=== PATIENT | female | born 1985 | race Caucasian/White ===

== ENCOUNTER 2019-07-02 17:01 | Emergency (ER) | payer OTHER ==
--- NOTE | 2019-07-02 17:25 | EDM.PDOC ---
ED HPI GENERAL MEDICAL PROBLEM - General Chief Complaint: Lower Extremity Injury/Pain Stated Complaint: LT FOOT AND ANKLE INJURY Time Seen by Provider: 07/02/19 17:09 Source of Information: Reports: Patient, RN Notes Reviewed History Limitations: Reports: No Limitations - History of Present Illness INITIAL COMMENTS - FREE TEXT/NARRATIVE: Patient is a 34-year-old female who presents to the ED for the evaluation of a left foot and ankle injury. Patient notes that around 215 this afternoon she was at home, was going down a staircase and looking at her phone and thought she was on the bottom step, but she was not. She fell down 2 steps, and states that the foot went backwards, and she thought she heard something pop. There is a large hematoma to the dorsum of the left lateral foot, also some swelling to the left lateral inferior malleolus. She states she is not able to bear weight, due to the pain. She took 1000 mg of Tylenol and 7.5 mg of meloxicam. She did not try icing the injury at this time. Did rate her pain at a 7 out of 10 without ambulation. She denies any numbness or tingling distal to the injury , nor does she states she is having any pain into her knee. She denies any chance of , she states she has had a hysterectomy for endometriosis. Treatments STUDENT LIFE COORDINATOR: Reports: Other (see below) Other Treatments STUDENT LIFE COORDINATOR: tylenol es and melaxicam Left Feet Pain Score (Numeric/FACES): 8 - Related Data Allergies Allergy/AdvReac Type Severity Reaction Status Date / Time meperidine [From Demerol] Allergy Hives Verified 07/02/19 17:12 ondansetron [From Zofran] Allergy Nausea and Verified 07/02/19 17:12 Vomiting Home Meds: Home Meds ARIPiprazole [Abilify] 2 mg PO DAILY 07/02/19 [History] Albuterol Sulfate [Proventil Hfa] 2 puff INH Q4H PRN 07/02/19 [History] Amitriptyline [Elavil] 75 mg PO BEDTIME 07/02/19 [History] Cyclobenzaprine [Flexeril] 10 mg PO TID PRN 07/02/19 [History] DULoxetine [Cymbalta] 120 mg PO DAILY 07/02/19 [History] Dextroamphetamine/Amphetamine [Adderall] 30 mg PO BID 07/02/19 [History] Estradiol [Estrace] 0.5 mg PO DAILY 07/02/19 [History] Fluticasone Propion/Salmeterol [Fluticasone-Salmeterol 232-14] 2 puff INH BID [History] Hydrochlorothiazide [Microzide] 50 mg PO DAILY 07/02/19 [History] Levothyroxine [Synthroid] 50 mcg PO DAILY 07/02/19 [History] Meclizine [Antivert] 25 mg PO BID 07/02/19 [History] Meloxicam 15 mg PO DAILY 07/02/19 [History] Oxybutynin 5 mg PO BID 07/02/19 [History] Pravastatin [Pravachol] 20 mg PO DAILY 07/02/19 [History] Promethazine [Phenergan] 25 mg PO Q4H PRN 07/02/19 [History] buPROPion [Wellbutrin] 150 mg PO BID 07/02/19 [History] 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 Musculoskeletal History: Reports: Other (See Below) Other Musculoskeletal History: Plantar Fasciitis Neurological History: Reports: Other (See Below) (MS like illness, states that she has a few chronic issues d/t this disease) Psychiatric History: Reports: Anxiety, Depression - Past Surgical History Female Surgical History: Reports: Hysterectomy Social & Family History - Tobacco Use Smoking Status *Q: Never Smoker - Caffeine Use Caffeine Use: Reports: Soda - Alcohol Use Alcohol Use History: No - Recreational Drug Use Recreational Drug Use: No - Living Situation & Occupation Living situation: Reports: , with Spouse Occupation: Employed Review of Systems - Review of Systems Review Of Systems: Comprehensive ROS is negative, except as noted in HPI. Musculoskeletal: Reports: Joint Pain (L ankle/lateral foot), Joint Swelling ( Left lateral ankle) Skin: Reports: Bruising (to L lateral foot) Neurological: Denies: Numbness, Tingling ED EXAM, GENERAL - Physical Exam Exam: See Below Exam Limited By: No Limitations General Appearance: Alert, WD/WN, No Apparent Distress Respiratory/Chest: No Respiratory Distress, Lungs Clear, Normal Breath Sounds, No Accessory Muscle Use, Chest Non-Tender Cardiovascular: Normal Peripheral Pulses, Regular Rate, Rhythm, No Edema, No Murmur Peripheral Pulses: 3+: Radial (L), Radial (R) Extremities: Normal Inspection (R foot), Normal Range of Motion (R foot), Normal Capillary Refill, Limited Range of Motion (of L foot/ankle d/t pain) Neurological: Alert, Oriented, Normal Cognition, No Motor/Sensory Deficits Psychiatric: Normal Affect, Normal Mood Skin Exam: Warm, Dry, Intact, No Rash, Ecchymosis (slight noted to Left lateral foot) Course - Vital Signs Last Recorded V/S: Last Vital Signs Temp 97.6 F 07/02/19 17:26 Pulse 109 H 07/02/19 17:26 Resp 20 07/02/19 17:26 BP 127/90 07/02/19 17:26 Pulse Ox 97 07/02/19 17:26 - Orders/Labs/Meds Orders: Active Orders 24 hr Category Date Time Status Ankle Min 3V Lt [CR] Stat Exams 07/02/19 17:17 Ordered Foot Comp Min 3V Lt [CR] Stat Exams 07/02/19 17:18 Ordered Acetaminophen/oxyCODONE [Percocet 325-5 MG] Med 07/02/19 19:19 Once 1 tab PO ONETIME ONE DME for Discharge [COMM] Routine Oth 07/02/19 18:18 Ordered Medication Orders Oxycodone/Acetaminophen (Percocet 325-5 Mg) 1 tab PO ONETIME ONE Stop: 07/02/19 19:20 Meds: Medications Generic Name Dose Route Start Last Admin Trade Name Freq PRN Reason Stop Dose Admin Oxycodone/Acetaminophen 1 tab 07/02/19 19:19 Percocet 325-5 Mg PO 07/02/19 19:20 ONETIME ONE Discontinued Medications Generic Name Dose Route Start Last Admin Trade Name Freq PRN Reason Stop Dose Admin Hydromorphone HCl 0.5 mg 07/02/19 18:49 07/02/19 18:58 Dilaudid IM 07/02/19 18:50 0.5 mg ONETIME ONE Administration Oxycodone/Acetaminophen 1 tab 07/02/19 18:01 07/02/19 18:06 Percocet 325-5 Mg PO 07/02/19 18:02 1 tab ONETIME ONE Administration - Re-Assessments/Exams Free Text/Narrative Re-Assessment/Exam: 07/02/19 17:26 Patient presents to the ED for the evaluation of a left foot and ankle injury. Have ordered x-rays of each to evaluate for injury. As there is some swelling in the the inferior lateral malleolus, and into the lateral dorsum of her foot. 07/02/19 18:50 Patient was initially given 5 mg Percocet for pain relief, she states however this only really made her head fuzzy, did not help the pain in her foot. At this time I did order 0.5 mg of IM Dilaudid for pain management. Departure - Departure Time of Disposition: 19:20 Disposition: Home, Self-Care 01 Condition: Fair Clinical Impression: Sprain and strain of left ankle Sprain of left foot Qualifiers: Encounter type: initial encounter Qualified Code(s): S93.602A - Unspecified sprain of left foot, initial encounter - Discharge Information *PRESCRIPTION DRUG MONITORING PROGRAM REVIEWED*: No *COPY OF PRESCRIPTION DRUG MONITORING REPORT IN PATIENT TRISH: No Instructions: Ankle Sprain, [id number] Referrals: Trina Cook PA-C [Primary Care Provider] - Forms: ED Department Discharge Additional Instructions: You have been evaluated in the ED for your left ankle/foot injury. Your x-ray demonstrated no obvious acute fracture or abnormality of the left foot or ankle. You most likely have a really bad sprain of the ankle and lateral foot. However official radiology read is pending, films were reviewed by myself and the ER doctor on shift, and it is not likely that you have any sort of acute fracture or bony abnormality. You will be called and made notified if something would change when we get the official read back, this may be tomorrow, Wednesday, July 03. However you will be treated with a walking boot for immobilization, please keep this in place, and use the crutches to stay nonweightbearing, unless told otherwise per orthopedics. Please use ice as tolerated to the affected area. Please try to elevate the affected area as much as possible to help reduce swelling. You may take Tylenol 500 mg or ibuprofen 600mg q6 hrs for pain relief. Please do so until you have a tolerable level of pain with activity. Do not exceed 4000mg Tylenol, Do not exceed 3200mg ibuprofen in a 24 hour time period. You were given a prescription for a strong pain medication, oxycodone/ acetaminophen 5/325, please take 1 tab every 6 hours as needed for pain not relieved by Tylenol or ibuprofen alone. Please note this does contain Tylenol in it, so do not take more than 4000 mg in a 24-hour time span. These medications can be addictive, so please take as few as possible to achieve adequate pain control. These meds can also be quite constipating, recommend that you increase your oral fluid intake and take a stool softener like MiraLAX while taking these medications. Please call Ortho for follow-up and further evaluation Dr. Centeno is our orthopedic surgeon, his office number is [phone]. Please call and set up an appointment as soon as possible for further management/evaluation. Dr. Franco is an physician credentialing specialist at the [facility], number their is . Please return to ED if your symptoms should change or worsen. Sepsis Event Note - Focused Exam Vital Signs: Vital Signs Temp Pulse Resp BP Pulse Ox 07/02/19 17:26 97.6 F 109 H 20 127/90 97 Date Exam was Performed: 07/02/19 Time Exam was Performed: 19:20 - My Orders Last 24 Hours: My Active Orders 07/02/19 17:17 Ankle Min 3V Lt [CR] Stat 07/02/19 17:18 Foot Comp Min 3V Lt [CR] Stat 07/02/19 18:18 DME for Discharge [COMM] Routine 07/02/19 19:19 Acetaminophen/oxyCODONE [Percocet 325-5 MG] 1 tab PO ONETIME ONE - Assessment/Plan Last 24 Hours: My Active Orders 07/02/19 17:17 Ankle Min 3V Lt [CR] Stat 07/02/19 17:18 Foot Comp Min 3V Lt [CR] Stat 07/02/19 18:18 DME for Discharge [COMM] Routine 07/02/19 19:19 Acetaminophen/oxyCODONE [Percocet 325-5 MG] 1 tab PO ONETIME ONE
[2019-07-02] MEDS ORDERED: Acetaminophen/oxyCODONE 325-5 MG Tab PO ONE ×2 (18:01→19:19)
[2019-07-02] MEDS ORDERED: HYDROmorphone 0.5 MG/0.5 ML Syringe IM ONE (18:49)
--- NOTE | 2019-07-03 07:16 | CR ---
Left ankle: Three views of left ankle were obtained. Comparison: No prior ankle study. Ankle mortise is symmetric. Lucent line is identified within the distal tip of the calcaneus compatible with small fracture. Medial and lateral malleoli are intact. No additional fracture or other bony abnormality is seen. Impression: 1. Small fracture involving the very distal tip of the calcaneus. 2. No additional abnormality is seen on left ankle exam. Diagnostic code #3 This report was dictated in [place] Standard Time
--- NOTE | 2019-07-03 07:16 | CR ---
Left foot: Four views of the left foot were obtained. Comparison: No prior foot exam. Ankle exam performed on the same day. Fracture again seen off the distal tip of the calcaneus. Small cortical avulsion fracture is noted off the dorsal and lateral talus. Soft tissue swelling is noted. No additional fracture or other bony abnormality is seen. Impression: 1. Fracture within the distal tip of the calcaneus. 2. Small displaced cortical avulsion fracture off the dorsal and lateral talus. 3. Soft tissue swelling in this area. Diagnostic code #3 This report was dictated in [place] Standard Time
== END 2019-07-02 19:41 | disposition home or self-care (01) ==
LOC: JD.ED 17:01
DX: S92.002A Unspecified fracture of left calcaneus, initial encounter for closed fracture (principal); S92.142A Displaced dome fracture of left talus, initial encounter for closed fracture; S92.152A Displaced avulsion fracture (chip fracture) of left talus, initial encounter for closed fracture; F41.9 Anxiety disorder, unspecified; F32.9 Major depressive disorder, single episode, unspecified; Z88.8 Allergy status to other drugs, medicaments and biological substances; Z79.899 Other long term (current) drug therapy; W10.9XXA Fall (on) (from) unspecified stairs and steps, initial encounter; Y92.009 Unspecified place in unspecified non-institutional (private) residence as the place of occurrence of the external cause
CPT/HCPCS: 73610; 73630; 96372; 99283; A9270; J1170

== ENCOUNTER 2020-08-17 14:12 | Emergency (ER) | payer OTHER ==
[2020-08-17] MEDS ORDERED: Sodium Chloride 0.9% 1,000 ML IV STA (14:36)
[2020-08-17] MEDS ORDERED: Metoclopramide 10 MG/2 ML SDV IVPUSH ONE (14:36)
[2020-08-17] MEDS ORDERED: diphenhydrAMINE 50 MG/ML SDV IVPUSH ONE (14:36)
[2020-08-17] MEDS ORDERED: Ketorolac 30 MG/ML SDV IVPUSH ONE (14:36)
--- NOTE | 2020-08-17 14:40 | EDM.PDOC ---
ED HPI GENERAL MEDICAL PROBLEM - General Chief Complaint: Headache Stated Complaint: HEADACHE Time Seen by Provider: 08/17/20 14:15 Source of Information: Reports: Patient, RN Notes Reviewed History Limitations: Reports: No Limitations - History of Present Illness INITIAL COMMENTS - FREE TEXT/NARRATIVE: Patient is a 35-year-old female presenting to the emergency department with complaints of right ear pain, mild sore throat, and headache. States her symptoms began this last Wednesday with the sore throat and right. she began develop headache in association with the symptoms. She was seen at the [facility] for evaluation at that time. She was diagnosed with viral illness, however she was given doxycycline and advised to start it in 5 to 7 days if she is not having improvement in symptoms. Patient states that 2 weeks ago she was treated for a bacterial sinusitis with Augmentin which is why the use doxycycline this time. She took 1 doxycycline this morning but has had not had relief. She also took half of a Lititz as well as some ibuprofen. Denies any vision changes. She does feel nauseous but has not vomited. Denies any fever or chills. Headache Pain Score (Numeric/FACES): 8 - Related Data Allergies Allergy/AdvReac Type Severity Reaction Status Date / Time meperidine [From Demerol] Allergy Severe Hives Verified 08/17/20 21:05 ondansetron [From Zofran] Allergy Severe Nausea and Verified 08/17/20 21:05 Vomiting Home Meds: Home Meds ARIPiprazole [Abilify] 2 mg PO DAILY 07/02/19 [History] Acetaminophen/oxyCODONE [Percocet 325-5 MG] 1 each PO Q6H PRN #20 tab 07/02/19 [Rx] Albuterol Sulfate [Proventil Hfa] 2 puff INH Q4H PRN 07/02/19 [History] Amitriptyline [Elavil] 75 mg PO BEDTIME 07/02/19 [History] Cyclobenzaprine [Flexeril] 10 mg PO TID PRN 07/02/19 [History] DULoxetine [Cymbalta] 120 mg PO DAILY 07/02/19 [History] Dextroamphetamine/Amphetamine [Adderall] 30 mg PO BID 07/02/19 [History] Fluticasone Propion/Salmeterol [Fluticasone-Salmeterol 232-14] 2 puff INH BID 07/02/19 [History] Levothyroxine [Synthroid] 50 mcg PO DAILY 07/02/19 [History] Meclizine [Antivert] 25 mg PO DAILY 07/02/19 [History] Meloxicam 15 mg PO DAILY 07/02/19 [History] Oxybutynin 5 mg PO BID 07/02/19 [History] Pravastatin [Pravachol] 20 mg PO DAILY 07/02/19 [History] Promethazine [Phenergan] 25 mg PO Q4H PRN 07/02/19 [History] buPROPion [Wellbutrin] 150 mg PO BID 07/02/19 [History] estradioL [Estrace] 1 mg PO DAILY 07/02/19 [History] hydroCHLOROthiazide [Microzide] 50 mg PO DAILY 07/02/19 [History] Budesonide [Pulmicort] 1 ampule INH Q4H 08/17/20 [History] Gabapentin [Neurontin] 100 mg PO BEDTIME 08/17/20 [History] Spironolactone 50 mg PO BID 08/17/20 [History] Tiotropium [Spiriva] 2 puff INH DAILY 08/17/20 [History] methylPREDNISolone [Medrol] 4 mg PO ASDIRECTED #1 tab.ds.pk 08/17/20 [Rx] Past Medical History Respiratory History: Reports: Asthma Gastrointestinal History: Reports: GERD 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 Musculoskeletal History: Reports: Other (See Below) Other Musculoskeletal History: Plantar Fasciitis Neurological History: Reports: Other (See Below) Psychiatric History: Reports: Anxiety, Depression - Past Surgical History Female Surgical History: Reports: Hysterectomy Musculoskeletal Surgical History: Reports: Other (See Below) Other Musculoskeletal Surgeries/Procedures:: planter fasitis Social & Family History - Tobacco Use Tobacco Use Status *Q: Never Tobacco User - Caffeine Use Caffeine Use: Reports: Soda - Recreational Drug Use Recreational Drug Use: No - Living Situation & Occupation Living situation: Reports: , with Spouse Occupation: Employed ED ROS GENERAL - Review of Systems Review Of Systems: See Below Constitutional: Reports: No Symptoms. Denies: Fever, Chills HEENT: Reports: Ear Pain, Throat Pain. Denies: Vertigo, Vision Change Respiratory: Reports: No Symptoms Cardiovascular: Reports: No Symptoms Endocrine: Reports: No Symptoms GI/Abdominal: Reports: No Symptoms : Reports: No Symptoms Musculoskeletal: Reports: No Symptoms Skin: Reports: No Symptoms Neurological: Reports: Headache. Denies: Dizziness Psychiatric: Reports: No Symptoms Hematologic/Lymphatic: Reports: No Symptoms Immunologic: Reports: No Symptoms - Physical Exam Exam: See Below Exam Limited By: No Limitations General Appearance: Alert, WD/WN, No Apparent Distress Eye Exam: Bilateral Eye: Normal Inspection, PERRL Ears: Normal External Exam, Normal Canal, Hearing Grossly Normal, Normal TMs Throat/Mouth: Normal Inspection, Normal Lips, Normal Teeth, Normal Gums, Normal Oropharynx, Normal Voice, No Airway Compromise Head Exam: Atraumatic, Normocephalic Neck: Normal Inspection, Supple, Non-Tender, Full Range of Motion Respiratory/Chest: No Respiratory Distress, Lungs Clear, Normal Breath Sounds, No Accessory Muscle Use, Chest Non-Tender Cardiovascular: Normal Peripheral Pulses, Regular Rate, Rhythm, No Edema, No Gallop, No JVD, No Murmur, No Rub GI/Abdominal: Normal Bowel Sounds, Soft, Non-Tender, No Organomegaly, No Distention, No Abnormal Bruit, No Mass Neuro Exam (Abbreviated): Alert, Oriented, CN II-XII Intact, Normal Cognition, Normal Gait, Normal Reflexes, No Motor/Sensory Deficits Psychiatric: Normal Affect, Normal Mood Skin Exam: Warm, Dry, Intact, Normal Color, No Rash Course - Vital Signs Last Recorded V/S: Last Vital Signs Temp 98.8 F 08/17/20 14:28 Pulse 95 08/17/20 16:10 Resp 16 08/17/20 16:10 BP 141/97 H 08/17/20 16:10 Pulse Ox 97 08/17/20 16:10 - Orders/Labs/Meds Labs: Laboratory Tests 08/17/20 08/17/20 Range/Units 15:20 15:20 WBC 9.45 (3.98-10.04) K/mm3 RBC 4.16 (3.98-5.22) M/mm3 Hgb 12.8 (11.2-15.7) gm/dl Hct 39.0 (34.1-44.9) % MCV 93.8 (79.4-94.8) fl MCH 30.8 (25.6-32.2) pg MCHC 32.8 (32.2-35.5) g/dl RDW Std Deviation 45.5 (36.4-46.3) fL Plt Count 258 (182-369) K/mm3 MPV 9.8 (9.4-12.3) fl Neut % (Auto) 61.1 (34.0-71.1) % Lymph % (Auto) 30.2 (19.3-51.7) % [place] % (Auto) 6.1 (4.7-12.5) % Eos % (Auto) 2.1 (0.7-5.8) Baso % (Auto) 0.3 (0.1-1.2) % Neut # (Auto) 5.77 (1.56-6.13) K/mm3 Lymph # (Auto) 2.85 (1.18-3.74) K/mm3 [place] # (Auto) 0.58 H (0.24-0.36) K/mm3 Eos # (Auto) 0.20 (0.04-0.36) K/mm3 Baso # (Auto) 0.03 (0.01-0.08) K/mm3 Sodium 142 (136-145) mEq/L Potassium 4.4 (3.5-5.1) mEq/L Chloride 103 (98-107) mEq/L Carbon Dioxide 29 (21-32) mEq/L Anion Gap 14.4 (5-15) BUN 25 H (7-18) mg/dL Creatinine 1.2 H (0.55-1.02) mg/dL Est Cr Clr Drug Dosing TNP Estimated GFR (MDRD) 51 (>60) mL/min BUN/Creatinine Ratio 20.8 H (14-18) Glucose 82 (74-106) mg/dL Calcium 8.8 (8.5-10.1) mg/dL Total Bilirubin 0.3 (0.2-1.0) mg/dL AST 16 (15-37) U/L ALT 22 (14-59) U/L Alkaline Phosphatase 85 (46-116) U/L C-Reactive Protein 1.0 (<1.0) mg/dL Total Protein 6.7 (6.4-8.2) g/dl Albumin 3.4 (3.4-5.0) g/dl Globulin 3.3 gm/dL Albumin/Globulin Ratio 1.0 (1-2) Meds: Medications Discontinued Medications Generic Name Dose Route Start Last Admin Trade Name Sindhu PRN Reason Stop Dose Admin Diphenhydramine HCl 50 mg 08/17/20 14:36 08/17/20 14:53 Benadryl IVPUSH 08/17/20 14:37 50 mg ONETIME ONE Administration Hydromorphone HCl 0.5 mg 08/17/20 15:59 08/17/20 16:05 Dilaudid IVPUSH 08/17/20 16:00 0.5 mg ONETIME ONE Administration Sodium Chloride 1,000 mls @ 999 mls/hr 08/17/20 14:36 08/17/20 14:54 Normal Saline IV 08/17/20 15:36 999 mls/hr NOW STA Administration Ketorolac Tromethamine 30 mg 08/17/20 14:36 08/17/20 14:53 Toradol IVPUSH 08/17/20 14:37 30 mg ONETIME ONE Administration Metoclopramide HCl 7.5 mg 08/17/20 14:36 08/17/20 14:53 Reglan IVPUSH 08/17/20 14:37 7.5 mg ONETIME ONE Administration - Re-Assessments/Exams Free Text/Narrative Re-Assessment/Exam: Patient is a 35-year-old female presenting to the emergency department with complaints of a 5-day history of right ear pain, throat pain, and headache. She started taking doxycycline that was prescribed by [facility] today. She has used half of a Lititz and ibuprofen with little relief. Exam findings are grossly unremarkable. TM is normal. Mucous membranes are dry but oropharynx is not erythematous. Ordered 1 L of normal saline bolus, Toradol 30 mg IV, Reglan 7.5 mg IV, and Benadryl 50 mg IV. Blood work to include CBC, CMP, CRP. 08/17/20 16:11 Hematology is grossly unremarkable. Exam findings show no sign of otitis media. Patient is likely suffering from a viral illness. She may continue to take her doxycycline as currently prescribed. I will also send a Medrol Dosepak to help with inflammation in the ear. Recommend Tylenol and ibuprofen. Discharge instructions as documented. Departure - Departure Time of Disposition: 16:12 Disposition: Home, Self-Care 01 Condition: Good Clinical Impression: Ear pain, right Headache Qualifiers: Headache type: unspecified Headache chronicity pattern: acute headache Intractability: not intractable Qualified Code(s): R51.9 - Headache, unspecified - Discharge Information *PRESCRIPTION DRUG MONITORING PROGRAM REVIEWED*: No *COPY OF PRESCRIPTION DRUG MONITORING REPORT IN PATIENT TRISH: No Prescriptions: methylPREDNISolone [Medrol] 4 mg PO ASDIRECTED #1 tab.ds.pk Instructions: General Headache Without Cause, Earache, Adult Referrals: Trina Cook PA-C [Primary Care Provider] - Forms: ED Department Discharge Additional Instructions: You were seen in the emergency department today for evaluation with regards to right ear pain, sore throat, and headache. Blood work was completed and was found to be normal. Exam findings were also normal. You are likely suffering from a viral illness. You may continue to take your doxycycline as previously prescribed. A prescription for all a Medrol Dosepak to reduce inflammation in your ear has been sent to [place] pharmacy. Take this medication as prescribed. Continue to use Tylenol or ibuprofen as needed for discomfort. Recommend follow-up with Trina Cook early next week if symptoms not improved. Return to ER as needed. Sepsis Event Note (ED) - Evaluation Sepsis Screening Result: No Definite Risk
[2020-08-17] MEDS ORDERED: HYDROmorphone 0.5 MG/0.5 ML Syringe IVPUSH ONE (15:59)
== END 2020-08-17 16:34 | disposition home or self-care (01) ==
LOC: JD.ED 14:12
DX: H92.01 Otalgia, right ear (principal); R51.9 Headache, unspecified; R11.0 Nausea; J45.909 Unspecified asthma, uncomplicated; Z88.8 Allergy status to other drugs, medicaments and biological substances; Z79.899 Other long term (current) drug therapy
CPT/HCPCS: 36415; 80053; 85025; 86140; 96374; 96375; 99284; J1170; J1200; J1885; J2765; J7030

== ENCOUNTER 2020-08-17 20:50 | Emergency (ER) | payer OTHER ==
[2020-08-17] MEDS ORDERED: Ondansetron 4 MG/2 ML SDV IVPUSH ONE (21:32)
[2020-08-17] MEDS ORDERED: Benztropine 1 MG Tab PO STA (21:32)
[2020-08-17] MEDS ORDERED: Haloperidol Lactate 5 MG/ML SDV IM ONE (21:32)
[2020-08-17] MEDS ORDERED: Sodium Chloride 0.9% 1,000 ML IV ONE (21:32)
[2020-08-17] MEDS ORDERED: Ketorolac 30 MG/ML SDV IVPUSH STA (21:35)
--- NOTE | 2020-08-17 21:41 | EDM.PDOC ---
ED HPI GENERAL MEDICAL PROBLEM - General Chief Complaint: Headache Stated Complaint: FACE PAIN AND SICK TO STOMACH Time Seen by Provider: 08/17/20 21:05 Source of Information: Reports: Patient, Family () History Limitations: Reports: No Limitations - History of Present Illness INITIAL COMMENTS - FREE TEXT/NARRATIVE: Mrs. Toro is a pleasant 35-year-old woman who states that she developed a right temporal headache, along with pain felt in her right ear and right side of her throat on 08/13/2020. She states that she was seen at the ED walk-in clinic on , 08/15/2020, where, she states, a rapid strep test and COVID test returned negative. She states that she was diagnosed with a viral illness, but nevertheless prescribed doxycycline, which she started taking this morning. The patient was then seen in this ED this morning for these complaints. She was found to be hemodynamically stable, afebrile, saturating 97% on room air. Work- up included a CBC, CMP, and CRP, all of which were completely normal. She was treated with IV diphenhydramine, IV Dilaudid, IV Toradol, IV Reglan, and IV fluid before being discharged home with a prescription for a Medrol Dosepak. The patient now returns to the ED stating that she had some improvement in her symptoms when seen in the ED, which lasted for about 2 hours, but then returned, worse than before. In addition, she has also developed nausea, although has not vomited, and upper and lower right dentalgia. She states that she occasionally gets headaches, although not this severe. She describes her right protestant pain and right ear pain is an ache, occasionally stabbing. She denies having any associated visual changes, such as blurry vision, wavy lines, or flashing lights. She states, however, that she has a sensitivity to light in her right eye only, and she may also have some phonophobia. No neurologic symptoms, such as tingling, numbness, or weakness. The patient states that she takes 900 mg of gabapentin QPM, other 100 mg QHS, as a treatment for her fibromyalgia. Here in the ED, the patient's initial BP is found to be somewhat elevated at 163/92, with a tachycardia of 122 bpm and slight tachypnea of 22 rpm. She is afebrile, saturating 98% on room air. The patient states that she was diagnosed with bacterial sinusitis about 2 weeks ago, treated with Augmentin. Her history, however, is consistent with sinusitis, not a sinus infection. Other than the symptoms, the patient denies having a recent fever, chills, cough, dyspnea, chest pain, palpitations, vomiting, constipation, diarrhea, abdominal pain, urinary symptoms, recent weight gain or weight loss, recent bloody bowel movements or black bowel movements, recent joint aches, or rashes. The patient's PCP is ABENA Leon. Her Manager Channel is Dr. Marito Queen. Her Head Wrestling Coach is Dr. Turner, in [place], [place]. She states that she already received an influenza vaccine this season. Right Face/Facial Pain Score (Numeric/FACES): 10 - Related Data Allergies Allergy/AdvReac Type Severity Reaction Status Date / Time meperidine [From Demerol] Allergy Severe Hives Verified 08/17/20 21:05 ondansetron [From Zofran] Allergy Severe Nausea and Verified 08/17/20 21:05 Vomiting Home Meds: Home Meds ARIPiprazole [Abilify] 2 mg PO DAILY 07/02/19 [History] Acetaminophen/oxyCODONE [Percocet 325-5 MG] 1 each PO Q6H PRN #20 tab 07/02/19 [Rx] Albuterol Sulfate [Proventil Hfa] 2 puff INH Q4H PRN 07/02/19 [History] Amitriptyline [Elavil] 75 mg PO BEDTIME 07/02/19 [History] Cyclobenzaprine [Flexeril] 10 mg PO TID PRN 07/02/19 [History] DULoxetine [Cymbalta] 120 mg PO DAILY 07/02/19 [History] Dextroamphetamine/Amphetamine [Adderall] 30 mg PO BID 07/02/19 [History] Fluticasone Propion/Salmeterol [Fluticasone-Salmeterol 232-14] 2 puff INH BID 07/02/19 [History] Levothyroxine [Synthroid] 50 mcg PO DAILY 07/02/19 [History] Meclizine [Antivert] 25 mg PO DAILY 12/29/19 [History] Meloxicam 15 mg PO DAILY 07/02/19 [History] Oxybutynin 5 mg PO BID 07/02/19 [History] Pravastatin [Pravachol] 20 mg PO DAILY 07/02/19 [History] Promethazine [Phenergan] 25 mg PO Q4H PRN 07/02/19 [History] buPROPion [Wellbutrin] 150 mg PO BID 07/02/19 [History] estradioL [Estrace] 1 mg PO DAILY 07/02/19 [History] hydroCHLOROthiazide [Microzide] 50 mg PO DAILY 07/02/19 [History] Budesonide [Pulmicort] 1 ampule INH Q4H 08/17/20 [History] Gabapentin [Neurontin] 100 mg PO BEDTIME 08/17/20 [History] Spironolactone 50 mg PO BID 08/17/20 [History] Tiotropium [Spiriva] 2 puff INH DAILY 08/17/20 [History] methylPREDNISolone [Medrol] 4 mg PO ASDIRECTED #1 tab.ds.pk 08/17/20 [Rx] Past Medical History Cardiovascular History: Reports: High Cholesterol Respiratory History: Reports: Asthma (PFT-proven) Gastrointestinal History: Reports: GERD, PUD 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: Endometriosis (laparoscopy-proven) Psychiatric History: Reports: Anxiety, Depression, Other (See Below) ( Fibromyalgia, Chronic Fatigue Syndrome) Endocrine/Metabolic History: Reports: Hypothyroidism, Obesity/BMI 30+ - Infectious Disease History Infectious Disease History: Reports: Chicken Pox - Past Surgical History HEENT Surgical History: Reports: Adenoidectomy, Oral Surgery (dental extractions), Tonsillectomy GI Surgical History: Reports: Appendectomy, Cholecystectomy (1996), Colonoscopy (x 3), EGD (x 3) Female Surgical History: Reports: Hysterectomy (complete), Other (See Below) (Exploratory laparoscopy for endometriosis x 5) Social & Family History - Tobacco Use Tobacco Use Status *Q: Never Tobacco User Second Hand Smoke Exposure: No - Caffeine Use Caffeine Use: Reports: Soda - Alcohol Use Alcohol Use History: No - Recreational Drug Use Recreational Drug Use: No - Living Situation & Occupation Living situation: Reports: , with Spouse Occupation: Unemployed ED ROS GENERAL - Review of Systems Review Of Systems: Comprehensive ROS is negative, except as noted in HPI. - Physical Exam Exam: See Below Exam Limited By: No Limitations General Appearance: Alert, WD/WN, No Apparent Distress Eye Exam: Bilateral Eye: EOMI, Normal Inspection Ears: Normal External Exam, Normal Canal, Hearing Grossly Normal, Normal TMs, Other (The patient reports pain with mild tugging on her external ear) Nose: Normal Inspection, Normal Mucosa, No Blood Throat/Mouth: Normal Inspection, Normal Lips, Normal Teeth, Normal Gums, Normal Oropharynx (no erythema or swelling), Normal Voice, No Airway Compromise Head Exam: Atraumatic, Normocephalic Neck: Normal Inspection, Supple, Full Range of Motion, Other (Tenderness to palpation of the right submandibular lymph node region, although no lymphadenopathy palpated). No: Lymphadenopathy (L), Lymphadenopathy (R) Respiratory/Chest: No Respiratory Distress, Lungs Clear, Normal Breath Sounds, No Accessory Muscle Use Cardiovascular: Normal Peripheral Pulses, Regular Rate, Rhythm, No Gallop, No JVD, No Murmur, No Rub GI/Abdominal: Normal Bowel Sounds, Soft, Non-Tender, No Organomegaly, No Distention, No Abnormal Bruit, No Mass Neuro Exam (Abbreviated): Alert, Oriented, Normal Cognition, No Motor/Sensory Deficits Back Exam: Normal Inspection, Full Range of Motion, NT Extremities: Normal Inspection, Normal Range of Motion, Normal Capillary Refill Psychiatric: Depressed Mood Skin Exam: Warm, Dry, Intact, Normal Color, No Rash Course - Vital Signs Last Recorded V/S: Last Vital Signs Temp 36.1 C 08/17/20 21:01 Pulse 95 08/18/20 01:38 Resp 16 08/18/20 01:38 BP 145/88 H 08/18/20 01:38 Pulse Ox 100 08/18/20 01:38 - Orders/Labs/Meds Orders: Active Orders 24 hr Category Date Time Status Head wo Cont [CT] Stat Exams 08/18/20 00:15 Taken Meds: Medications Discontinued Medications Generic Name Dose Route Start Last Admin Trade Name Sindhu PRN Reason Stop Dose Admin Benztropine Mesylate 1 mg 08/17/20 21:32 08/17/20 21:58 Cogentin PO 08/17/20 21:33 1 mg ONETIME STA Administration Haloperidol Lactate 5 mg 08/17/20 21:32 08/17/20 21:50 Haldol IM 08/17/20 21:33 5 mg ONETIME ONE Administration Sodium Chloride 1,000 mls @ 999 mls/hr 08/17/20 21:32 08/17/20 21:49 Normal Saline IV 08/17/20 22:32 999 mls/hr ONETIME ONE Administration Ketorolac Tromethamine 30 mg 08/17/20 21:35 08/17/20 21:48 Toradol IVPUSH 08/17/20 21:36 30 mg ONETIME STA Administration Metoclopramide HCl 10 mg 08/17/20 22:14 08/17/20 22:22 Reglan IVPUSH 08/17/20 22:15 10 mg ONETIME ONE Administration Ondansetron HCl 4 mg 08/17/20 21:32 08/17/20 21:58 Zofran IVPUSH 08/17/20 21:33 Not Given ONETIME ONE - Re-Assessments/Exams Free Text/Narrative Re-Assessment/Exam: 08/17/20 21:36 As above, the patient developed right ear pain, right-sided sore throat, and headache on Wednesday, was seen in the walk-in clinic on , where a rapid strep test and COVID test were negative. She was diagnosed with a viral illness, but prescribed doxycycline anyway, which she started today. She was then seen in our ED this afternoon, where a CBC, CMP, and CRP were unremarkable. She was again diagnosed with a viral illness. She was treated with IV diphenhydramine, IV Dilaudid, IV Toradol, IV Reglan, and IV fluid before being discharged home with a prescription for a Medrol Dosepak. She now returns with continuation of her symptoms along with nausea without vomiting that began today. She reports right eye photophobia and possible phonophobia. Her symptoms are concerning for migraine etiology, although she is on gabapentin, which 1 would expect to ameliorate that. Nevertheless, I have ordered treatment with IM Haldol, oral Cogentin, IV Zofran, IV Toradol, and IV fluid. Since her blood work was unremarkable just this afternoon, I do not see need to repeat it tonight. 08/17/20 22:15 Notified by Fiorella ACHARYA that the patient reported that she is "allergic" to Zofran insofar as it causes her to vomit more. Of course, that is not an actual allergic reaction, however, I have ordered IV Reglan instead. 08/18/20 00:04 The patient states that she had some brief improvement in her headache following the Haldol and Toradol, however, it has since returned, worse than before. Based on this, the patient's headache is not due to a migraine. I recommended that she follow-up with neurology to see if they can figure out the cause of her symptoms. They may want to perform an MRI of her head, which I explained I am unable to do from the ED. The patient is not satisfied. She would like me to treat her with some form of pain medication to address her pain now, however, I explained that I cannot prescribe an opioid for headache, since history has shown that that approach leads to an upward spiral of pain which is nearly impossible to get out of, and because of that, the guidelines are very clear that opioids should not be used to treat headache pain unless the pain is due to an intracranial bleed. The patient requested that I call the Hospitalist to see if they have any suggestions. 08/18/20 00:[address] Garcia at 00:07. He agreed that opioids should not be started, and did not have any suggestions on how the patient's pain should be treated. He did not feel the patient should be admitted. 08/18/20 00:15 The above was discussed with the patient. Although her neurologic examination is normal, I suggested that we check a CT of the head to rule out the (highly unlikely) possibility of an intracranial bleed or some other anatomic problem that might explain her symptoms. The patient agreed. 08/18/20 01:03 CT of the head without contrast is read by Connor as "No acute intracranial abnormality." 08/18/20 01:11 CT results discussed with the patient and her . I will discharge the patient home with the recommendation that she take the Medrol Dosepak as prescribed earlier today, and I will provide her with a number for her to make an appointment to see the Neurology midlevel Samantha Pagan DNP, in [place], for further evaluation. Departure - Departure Time of Disposition: :14 Disposition: Home, Self-Care 01 Condition: Good Clinical Impression: Right facial pain - Discharge Information *PRESCRIPTION DRUG MONITORING PROGRAM REVIEWED*: Not Applicable *COPY OF PRESCRIPTION DRUG MONITORING REPORT IN PATIENT TRISH: Not Applicable Referrals: Trina Cook PA-C [Primary Care Provider] - Marito Queen MD [Ordering Only Provider] - Forms: ED Department Discharge Additional Instructions: You were seen in the emergency room for continued right protestant pain with right ear and right throat pain, and nausea. Work-up in the ER included a CT of your head, which returned normal. You had temporary relief following IM Haldol and IV Toradol, however, your pain returned. Based on the above, your pain is most likely NOT due pain. The cause of your symptoms is not known. We recommend that you take the Medrol Dosepak that was prescribed to you earlier yesterday. If your symptoms persist, we recommend that you follow-up with the neurology midlevel Samantha Pagan DNP, in [place]. Call [phone] to make an appointment. If any other problems, please do not hesitate to return to the ER. Sepsis Event Note (ED) - Evaluation Sepsis Screening Result: No Definite Risk - Focused Exam Vital Signs: Vital Signs Temp Pulse Resp BP Pulse Ox 08/18/20 01:38 95 16 145/88 H 100 08/17/20 21:01 36.1 C 122 H 22 H 163/92 H 98 - My Orders Last 24 Hours: My Active Orders 08/18/20 00:15 Head wo Cont [CT] Stat - Assessment/Plan Last 24 Hours: My Active Orders 08/18/20 00:15 Head wo Cont [CT] Stat
[2020-08-17] MEDS ORDERED: Metoclopramide 10 MG/2 ML SDV IVPUSH ONE (22:14)
--- NOTE | 2020-08-18 18:05 | CT ---
Head CT Technique: Multiple axial sections through the brain were obtained. Intravenous contrast was not utilized. Reconstructed coronal and sagittal images were obtained. Comparison: No prior intracranial imaging is available. Findings: Ventricles along with basal cisterns and sulci over the convexities are within normal limits for the patient's age. No abnormal parenchymal densities are seen. No evidence of intracranial hemorrhage. No midline shift or mass-effect is seen. Bone window settings were reviewed. No acute calvarial abnormality is seen. Visualized mastoid sinuses and paranasal sinuses show nothing acute. Impression: 1. Nothing acute is appreciated on noncontrast head CT study. Diagnostic code #1 I agree with preliminary report from 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
== END 2020-08-18 01:38 | disposition home or self-care (01) ==
LOC: JD.ED 20:50
DX: R51.9 Headache, unspecified (principal); E78.00 Pure hypercholesterolemia, unspecified; J45.909 Unspecified asthma, uncomplicated; K21.9 Gastro-esophageal reflux disease without esophagitis; E03.9 Hypothyroidism, unspecified; E66.9 Obesity, unspecified; Z68.42 Body mass index [BMI] 45.0-49.9, adult; Z88.5 Allergy status to narcotic agent; Z79.899 Other long term (current) drug therapy
CPT/HCPCS: 70450; 96372; 96374; 96375; 99283; A9270; J1630; J1885; J2765; J7030; 99284

== ENCOUNTER 2020-08-19 18:39 | Emergency (ER) | payer OTHER ==
[2020-08-19] MEDS ORDERED: Ketorolac 60 MG/2 ML SDV IM ONE (20:04)
[2020-08-19] MEDS ORDERED: Ketorolac 30 MG/ML SDV IVPUSH ONE (20:12)
[2020-08-19] MEDS ORDERED: Ketorolac 30 MG/ML SDV ONE (20:13)
--- NOTE | 2020-08-19 20:17 | EDM.PDOC ---
ED HPI GENERAL MEDICAL PROBLEM - General Chief Complaint: Headache Stated Complaint: HEADACHE Time Seen by Provider: 08/19/20 19:29 - History of Present Illness INITIAL COMMENTS - FREE TEXT/NARRATIVE: 35-year-old female presents the emergency room with a headache Patient's been seen several times the last few days here. She is gotten brief relief from the treatment she is received here in the emergency room. She is still taking the Medrol Dosepak and is planning to follow-up with neurology. The patient had some dental work done little over a month ago and things seem to get better after this was taken care of. What the patient is describing now is pain around her right side and teeth that radiate up into her ear and into her right cheek and into her lesser degree into her sinuses. This causes some significant discomfort and eventually pain into the right side of the head. She also has some pain extending into the right side of her neck. Albeit she is not having any swelling in her neck. The patient is currently taking doxycycline Medrol Dosepak and her routine medications. She will not take her meloxicam this evening. The patient uses Pepcid daily I have advised her to increase this to twice daily while on the Medrol Dosepak. - Related Data Allergies Allergy/AdvReac Type Severity Reaction Status Date / Time meperidine [From Demerol] Allergy Severe Hives Verified 08/19/20 20:16 ondansetron [From Zofran] Allergy Severe Nausea and Verified 08/19/20 20:16 Vomiting Home Meds: Home Meds ARIPiprazole [Abilify] 2 mg PO BEDTIME 07/02/19 [History] Acetaminophen/oxyCODONE [Percocet 325-5 MG] 1 each PO Q6H PRN #20 tab 07/02/19 [Rx] Albuterol Sulfate [Proventil Hfa] 2 puff INH Q4H PRN 07/02/19 [History] Amitriptyline [Elavil] 75 mg PO BEDTIME 07/02/19 [History] Cyclobenzaprine [Flexeril] 10 mg PO TID PRN 07/02/19 [History] DULoxetine [Cymbalta] 120 mg PO DAILY 07/02/19 [History] Dextroamphetamine/Amphetamine [Adderall] 30 mg PO BID 07/02/19 [History] Fluticasone Propion/Salmeterol [Fluticasone-Salmeterol 232-14] 2 puff INH BID 07/02/19 [History] Levothyroxine [Synthroid] 50 mcg PO DAILY 07/02/19 [History] Meclizine [Antivert] 25 mg PO DAILY 07/02/19 [History] Meloxicam 15 mg PO DAILY PRN 07/02/19 [History] Oxybutynin 5 mg PO BID 07/02/19 [History] Pravastatin [Pravachol] 20 mg PO DAILY 07/02/19 [History] Promethazine [Phenergan] 25 mg PO Q4H PRN 07/02/19 [History] buPROPion [Wellbutrin] 150 mg PO BID 07/02/19 [History] estradioL [Estrace] 1 mg PO DAILY 07/02/19 [History] hydroCHLOROthiazide [Microzide] 50 mg PO DAILY 07/02/19 [History] Budesonide [Pulmicort] 1 ampule INH Q4H PRN 08/17/20 [History] Gabapentin [Neurontin] 100 mg PO BEDTIME 08/17/20 [History] Spironolactone 50 mg PO BID 08/17/20 [History] Tiotropium [Spiriva] 2 puff INH DAILY 08/17/20 [History] methylPREDNISolone [Medrol] 4 mg PO ASDIRECTED #1 tab.ds.pk 08/17/20 [Rx] Past Medical History Cardiovascular History: Reports: High Cholesterol Respiratory History: Reports: Asthma Gastrointestinal History: Reports: GERD, PUD 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 Musculoskeletal History: Reports: Other (See Below) Other Musculoskeletal History: Plantar Fasciitis Neurological History: Reports: Other (See Below) Psychiatric History: Reports: Anxiety, Depression, Other (See Below) Endocrine/Metabolic History: Reports: Hypothyroidism, Obesity/BMI 30+ - Infectious Disease History Infectious Disease History: Reports: Chicken Pox - Past Surgical History HEENT Surgical History: Reports: Adenoidectomy, Oral Surgery, Tonsillectomy GI Surgical History: Reports: Appendectomy, Cholecystectomy, Colonoscopy, EGD Female Surgical History: Reports: Hysterectomy, Other (See Below) Musculoskeletal Surgical History: Reports: Other (See Below) Other Musculoskeletal Surgeries/Procedures:: planter fasitis Social & Family History - Family History Family Medical History: No Pertinent Family History - Tobacco Use Tobacco Use Status *Q: Never Tobacco User Second Hand Smoke Exposure: No - Caffeine Use Caffeine Use: Reports: Soda - Recreational Drug Use Recreational Drug Use: No - Living Situation & Occupation Living situation: Reports: , with Spouse Occupation: Unemployed ED ROS ENT - Review of Systems Review Of Systems: See Below Constitutional: Reports: No Symptoms HEENT: Reports: Other (She has right-sided dental pain. This radiates towards her ear and into her cheek down her neck and into her head.) Respiratory: Reports: No Symptoms Cardiovascular: Reports: No Symptoms, Chest Pain Endocrine: Reports: No Symptoms, Fatigue, High Glucose GI/Abdominal: Reports: No Symptoms, Abdominal Pain, Anorexia, Nausea. Denies: Vomiting Musculoskeletal: Reports: No Symptoms Skin: Reports: No Symptoms Neurological: Reports: Headache Psychiatric: Reports: No Symptoms ED EXAM, ENT - Physical Exam Exam: See Below Exam Limited By: No Limitations General Appearance: Alert, No Apparent Distress Eye Exam: Bilateral Eye: EOMI, Normal Inspection, PERRL Ears: Normal External Exam, Normal Canal, Hearing Grossly Normal, Normal TMs Nose: Normal Inspection, Normal Mucousa, No Blood Mouth/Throat: Normal Inspection, Other (Significant dental irritation in her lower teeth on the right side palpation with a tongue depressor causes sharp shooting pain up into the areas that have been hurting. There is no obvious gum swelling or erythema and no drainage noted) Neck: Normal Inspection, Supple, Non-Tender, Full Range of Motion, Other (Feels like her right side of her neck is swollen but I am not palpating this.). No: Lymphadenopathy (L), Lymphadenopathy (R) Respiratory/Chest: No Respiratory Distress, Lungs Clear, Normal Breath Sounds Cardiovascular: Regular Rate, Rhythm, No Edema, No Murmur Course - Vital Signs Last Recorded V/S: Last Vital Signs Temp 36.4 C 08/19/20 18:45 Pulse 99 08/19/20 18:45 Resp 16 08/19/20 18:45 BP 160/101 H 08/19/20 18:45 Pulse Ox 98 08/19/20 18:45 - Orders/Labs/Meds Meds: Medications Discontinued Medications Generic Name Dose Route Start Last Admin Trade Name Freq PRN Reason Stop Dose Admin Ketorolac Tromethamine 60 mg 08/19/20 20:04 08/19/20 20:12 Toradol IM 08/19/20 20:05 Not Given ONETIME ONE Ketorolac Tromethamine 30 mg 08/19/20 20:12 08/19/20 20:14 Toradol IVPUSH 08/19/20 20:13 30 mg ONETIME ONE Administration Ketorolac Tromethamine Confirm 08/19/20 20:13 08/19/20 20:25 Toradol Administered 08/19/20 20:14 Not Given Dose 30 mg .ROUTE .STK-MED ONE - Re-Assessments/Exams Free Text/Narrative Re-Assessment/Exam: 08/19/20 20:29 This unfortunate patient has had the work-up excluding MRI. I agree with avoiding opioids in her. On my exam a startling finding was pressure over the lower teeth on the right seem to elicit pain in all the areas she has pain. She has had some recent dental work care I am concerned about something going on deep inside the jaw that could be affecting this. At this point we will give the patient a shot of Toradol and have her follow-up with her dentist first thing in the morning to see if we can identify what is causing her headaches. 08/19/20 20:49 Patient does not get much relief from the Toradol we will give her some Percocet from the machine in the waiting room thinking this is probably dental pain of origin. Departure - Departure Time of Disposition: 20:30 Disposition: Home, Self-Care 01 Clinical Impression: Pressure and pain of right side of face - Discharge Information Referrals: Trina Cook PA-C [Primary Care Provider] - Forms: ED Department Discharge Additional Instructions: Return to the emergency room with any questions problems or worsening symptoms. Follow-up with your dentist first thing in the morning. Follow-up with your regular healthcare provider by the middle of this week. We will give her 10 Percocet from the machine out the waiting room 1 every 4-6 hours as needed Sepsis Event Note (ED) - Evaluation Sepsis Screening Result: No Definite Risk - Focused Exam Vital Signs: Vital Signs Temp Pulse Resp BP Pulse Ox 08/19/20 18:45 36.4 C 99 16 160/101 H 98
== END 2020-08-19 21:02 | disposition home or self-care (01) ==
LOC: JD.ED 18:39
DX: R51.9 Headache, unspecified (principal); E78.00 Pure hypercholesterolemia, unspecified; J45.909 Unspecified asthma, uncomplicated; E03.9 Hypothyroidism, unspecified; E66.9 Obesity, unspecified; Z68.42 Body mass index [BMI] 45.0-49.9, adult; Z88.8 Allergy status to other drugs, medicaments and biological substances; Z79.899 Other long term (current) drug therapy
CPT/HCPCS: 96374; 99283; J1885

== ENCOUNTER 2021-10-26 18:43 | Emergency (ER) | payer OTHER ==
[2021-10-26] MEDS ORDERED: Ketorolac 30 MG/ML SDV IM ONE (19:15)
== END 2021-10-26 20:18 | disposition home or self-care (01) ==
LOC: JD.ED 18:43
DX: S52.591A Other fractures of lower end of right radius, initial encounter for closed fracture (principal); J45.909 Unspecified asthma, uncomplicated; E78.00 Pure hypercholesterolemia, unspecified; E03.9 Hypothyroidism, unspecified; Z90.49 Acquired absence of other specified parts of digestive tract; Z90.710 Acquired absence of both cervix and uterus; Z79.899 Other long term (current) drug therapy; Z88.6 Allergy status to analgesic agent; Z88.8 Allergy status to other drugs, medicaments and biological substances; W01.0XXA Fall on same level from slipping, tripping and stumbling without subsequent striking against object, initial encounter
CPT/HCPCS: 73110; 96372; 99283; J1885

== ENCOUNTER 2022-03-21 09:46 | Emergency (ER) | payer OTHER | END 2022-03-21 10:27 | disposition home or self-care (01) | LOC: JD.ED 09:46 | DX: K08.89 Other specified disorders of teeth and supporting structures (principal); J45.909 Unspecified asthma, uncomplicated; E78.00 Pure hypercholesterolemia, unspecified; E66.9 Obesity, unspecified; Z68.41 Body mass index [BMI] 40.0-44.9, adult; Z88.8 Allergy status to other drugs, medicaments and biological substances; Z79.899 Other long term (current) drug therapy; Z90.49 Acquired absence of other specified parts of digestive tract; Z90.710 Acquired absence of both cervix and uterus | CPT/HCPCS: 99282 ==

== ENCOUNTER 2024-01-02 22:15 | Emergency (ER) | payer BC, OTHER ==
[2024-01-02 23:07] LABS: BASOPHILS ABSOLUTE AUTO 0.1 K/mm3 (0.0-0.2); BASOPHILS PERCENT AUTO 0.6 % (0.0-1.0); EOSINOPHILS ABSOLUTE AUTO 0.3 K/mm3 (0.0-0.4); EOSINOPHILS PERCENT AUTO 2.5 % (0.0-6.0); HEMATOCRIT 40.3 % (37.0-47.0); HEMOGLOBIN 13.8 gm/dl (12.0-16.0); IMMATURE GRAN ABSOLUTE AUTO 0.05 K/mm3 (0.00-0.05); IMMATURE GRAN PERCENT AUTO 0.4 % (0.0-0.4); LYMPHOCYTES ABSOLUTE AUTO 3.6 K/mm3 (1.0-4.8); LYMPHOCYTES PERCENT AUTO 29.1 % (24.0-44.0); MEAN CORPUSCULAR HEMOGLOBIN 32.1 pg (28.0-32.0); MEAN CORPUSCULAR HGB CONC 34.2 g/dl (32.0-36.0); MEAN CORPUSCULAR VOLUME 93.7 fl (83.0-99.0); MEAN PLATELET VOLUME 9.3 fl (9.4-12.3); MONOCYTES ABSOLUTE AUTO 0.8 K/mm3 (0.0-0.8); MONOCYTES PERCENT AUTO 6.1 % (0.0-8.0); NEUTROPHILS ABSOLUTE AUTO 7.6 K/mm3 (1.8-7.7); NEUTROPHILS PERCENT AUTO 61.3 % (41.0-71.0); PLATELET COUNT,PLT 248 K/mm3 (150-400); WHITE BLOOD CELL COUNT,WBC 12.39 K/mm3 (3.9-11.3)
[2024-01-02] MEDS: Acetaminophen 325 MG Tab PO ONE (23:21)
[2024-01-02] MEDS: Metoclopramide 10 MG/2 ML SDV IVPUSH ONE (23:22)
[2024-01-02] MEDS: Sodium Chloride 0.9% 1,000 ML IV ONE (23:22)
[2024-01-02] MEDS: Ketorolac 15 MG/ML SDV IVPUSH ONE (23:26)
[2024-01-02 23:28] LABS: A/G RATIO 0.9 (1-2); ALBUMIN 3.2 g/dl (3.4-5.0); ANION GAP 12.4 (5-15); BILIRUBIN TOTAL 0.3 mg/dL (0.2-1.0); BUN/CREATININE RATIO 10.8 (14-18); CALCIUM 8.7 mg/dL (8.5-10.1); CREATININE 1.2 mg/dL (0.55-1.02); EST CRCL DRUG DOSING (CG) 60.6 mL/min; POTASSIUM,K 3.4 mEq/L (3.5-5.1); PROTEIN TOTAL,TP 6.6 g/dl (6.4-8.2)
[2024-01-03] MEDS: Ketorolac 15 MG/ML SDV IVPUSH ONE (00:29)
== END 2024-01-03 01:53 | disposition home or self-care (01) ==
LOC: JD.ED 22:15
DX: G43.909 Migraine, unspecified, not intractable, without status migrainosus (principal); J45.909 Unspecified asthma, uncomplicated; E03.9 Hypothyroidism, unspecified; E66.9 Obesity, unspecified; Z79.899 Other long term (current) drug therapy; Z88.8 Allergy status to other drugs, medicaments and biological substances
CPT/HCPCS: 36415; 80053; 84703; 85025; 96361; 96374; 96375; 99283; A9270; J1885; J2765; J7030; 99284

== ENCOUNTER 2025-03-12 05:16 | Emergency (ER) | payer BC ==
[2025-03-12] MEDS: Ketorolac 30 MG/ML SDV IVPUSH ONE (05:54)
[2025-03-12] MEDS: Sodium Chloride 0.9% 10 ML Syringe FLUSH PRN (05:55)
[2025-03-12 05:59] LABS: BASOPHILS ABSOLUTE AUTO 0.1 K/mm3 (0.0-0.2); BASOPHILS PERCENT AUTO 0.8 % (0.0-1.0); EOSINOPHILS ABSOLUTE AUTO 0.3 K/mm3 (0.0-0.4); EOSINOPHILS PERCENT AUTO 4.2 % (0.0-6.0); IMMATURE GRAN ABSOLUTE AUTO 0.02 K/mm3 (0.00-0.05); IMMATURE GRAN PERCENT AUTO 0.3 % (0.0-0.4); LYMPHOCYTES ABSOLUTE AUTO 2.5 K/mm3 (1.0-4.8); LYMPHOCYTES PERCENT AUTO 34.9 % (24.0-44.0); MEAN PLATELET VOLUME 10.0 fl (9.4-12.3); MONOCYTES ABSOLUTE AUTO 0.5 K/mm3 (0.0-0.8); MONOCYTES PERCENT AUTO 7.3 % (0.0-8.0); NEUTROPHILS ABSOLUTE AUTO 3.8 K/mm3 (1.8-7.7); NEUTROPHILS PERCENT AUTO 52.5 % (41.0-71.0); NRBC ABSOLUTE 0.00 (0.00-0.02); NRBC PERCENT 0.0 % (0.0-0.2); PLATELET COUNT,PLT 216 K/mm3 (150-400); RED BLOOD CELL COUNT 4.18 M/mm3 (4.10-5.30); WHITE BLOOD CELL COUNT,WBC 7.14 K/mm3 (3.9-11.3)
[2025-03-12] MEDS: Iopamidol 755 Mg/ML 100 ML Bottle IVPUSH ONE (06:14)
[2025-03-12 06:38] LABS: A/G RATIO 0.9 (1-2); ALANINE AMINOTRANSFERASE,ALT 34 U/L (14-59); ASPARTATE AMNIOTRANSFERASE,AST 25 U/L (15-37); BILIRUBIN TOTAL 0.4 mg/dL (0.2-1.0); BLOOD UREA NITROGEN,BUN 13 mg/dL (7-18); CARBON DIOXIDE,CO2 28 mEq/L (21-32); CHLORIDE,CL 103 mEq/L (98-107); CREATININE 1.1 mg/dL (0.55-1.02); EST CRCL DRUG DOSING (CG) 70.34 mL/min; ESTIMATED GFR 65 mL/min (>60); GLUCOSE RANDOM 108 mg/dL (70-99); POTASSIUM,K 2.7 mEq/L (3.5-5.1); PROTEIN TOTAL,TP 6.8 g/dl (6.4-8.2); SODIUM,NA 141 mEq/L (136-145)
[2025-03-12 06:39] LABS: TROPONIN I HIGH SENSITIVITY < 4 pg/mL (<=51)
[2025-03-12] MEDS: Potassium Chloride 20 MEQ Tab.ER PO ONE (06:54)
[2025-03-12] MEDS: Acetaminophen/oxyCODONE 325-5 MG Tab PO ONE (07:16)
[2025-03-12 07:52] LABS: TROPONIN I HIGH SENSITIVITY < 4 pg/mL (<=51)
== END 2025-03-12 08:33 | disposition home or self-care (01) ==
LOC: JD.ED 05:16
DX: R07.89 Other chest pain (principal); I77.1 Stricture of artery; M79.601 Pain in right arm; E78.00 Pure hypercholesterolemia, unspecified; J45.909 Unspecified asthma, uncomplicated; K21.9 Gastro-esophageal reflux disease without esophagitis; E03.9 Hypothyroidism, unspecified; Z88.8 Allergy status to other drugs, medicaments and biological substances; Z79.899 Other long term (current) drug therapy
CPT/HCPCS: 36415; 71275; 80053; 81025; 83735; 84484; 85025; 85379; 93005; 96374; 99285; A9270; J1885; Q9967; 93010; 99284